=== PATIENT | male | born 1975 | race Caucasian/White ===

== ENCOUNTER 2020-10-24 19:42 | Emergency (ER) | payer OTHER ==
[~2020-10-24] VITALS: Ht 167.6 cm; Wt 97.5 kg
[2020-10-24] MEDS ORDERED: TORADOL 10 MG T10 MG PO (22:41)
[2020-10-24] MEDS ORDERED: CYCLOBENZAPRINE5 MG PO (22:41)
[2020-10-24 22:51] VITALS: BP 138/96
== END 2020-10-24 22:52 | disposition home or self-care (01) ==
LOC: M.ERS 19:42
DX: R51.9 Headache, unspecified (principal); T88.1XXA Other complications following immunization, not elsewhere classified, initial encounter; M54.5 Low back pain